=== PATIENT | male | born 1985 | race Two or more races ===

== ENCOUNTER 2021-07-04 12:16 | Emergency (ER) | payer MEDICAID ==
[~2021-07-04] VITALS: Ht 172.7 cm; Wt 77.3 kg
[2021-07-04 12:18] VITALS: BP 139/79
[2021-07-04] MEDS ORDERED: ALBU8HFA IH (12:26)
== END 2021-07-04 13:46 | disposition home or self-care (01) ==
LOC: EMS 12:16
DX: F32.9 Major depressive disorder, single episode, unspecified (principal); F10.10 Alcohol abuse, uncomplicated; J45.909 Unspecified asthma, uncomplicated
CPT/HCPCS: 99284; Z7502